=== PATIENT | female | born 1960 | race African-American/Black ===

== ENCOUNTER 2018-04-04 06:24 | Emergency (ER) | payer OTHER, MEDICAID ==
[~2018-04-04] VITALS: Ht 167.6 cm; Wt 63.0 kg
[2018-04-04 07:39] VITALS: BP 144/101
== END 2018-04-04 08:01 | disposition home or self-care (01) ==
LOC: ER 06:25
DX: S90.32XA Contusion of left foot, initial encounter (principal); I10 Essential (primary) hypertension; F17.210 Nicotine dependence, cigarettes, uncomplicated; Z88.0 Allergy status to penicillin; W20.8XXA Other cause of strike by thrown, projected or falling object, initial encounter; Y93.89 Activity, other specified; Y99.8 Other external cause status; Y92.89 Other specified places as the place of occurrence of the external cause
CPT/HCPCS: 73610